=== PATIENT | female | born 1935 | race Caucasian/White ===

== ENCOUNTER → 2018-03-16 14:37 | Outpatient (CLI) | payer MEDICARE, SELFPAY | PROVIDERS: Family Provider Family Medicine; PCP Family Medicine; Visit Provider Family Medicine | DX: M81.0 Age-related osteoporosis without current pathological fracture (principal); Z78.0 Asymptomatic menopausal state; Z82.62 Family history of osteoporosis | CPT/HCPCS: 77080 ==

== ENCOUNTER 2019-12-18 15:17 | Emergency (ER) | payer MEDICARE, SELFPAY ==
[2019-12-18 15:42] VITALS: BP 198/91; PULSE 95; RESP 16; TEMP 36.7; O2SAT 96; BMI 22.3
--- NOTE | 2019-12-18 15:42 | ED_ITS ---
HPI - Head Injury General Chief complaint: Trauma Stated complaint: Fall/Hit head/Rt arm pain Time Seen by Provider: 12/18/19 15:34 Source: patient and family (son) Limitations: no limitations History of Present Illness HPI Narrative: This is a 84-year-old female who states that she tripped and fell hitting her head as well as falling on her right elbow. Patient states that she did not hit her head very hard. She did have loss of consciousness. She denies any headache, no vision changes, no chest pain or shortness of breath. She denies any neck or back pain. Her main complaint is her right elbow and she states she has a cut on her hand as well as 1 on her forehead. Patient states her tetanus is up-to-date. She denies any other GI or urinary symptoms. Patient is not on any anticoagulants including aspirin she does take allegra rvastatin and has a history of multiple orthopedic surgeries including bilateral hip replacements. She is accompanied by her son. She lives independently and does not use any aids such as walkers or canes to walk normally. Related Data Home Medications Medication Instructions Recorded Confirmed [CALCIUM] 500 mg PO BID #0 12/03/11 [IRON] 324 mg PO QDAY #0 12/03/11 [MAGNESIUM] 500 mg PO QDAY #0 12/03/11 [MULTI VIT ] 1 tab PO Q DAY #0 12/03/11 [VIT D 3 ] 2,000 iu PO QDAY #0 12/03/11 atorvastatin [Lipitor] 10 mg PO HS #0 12/03/11 fluticasone propionate 2 spray INTRANASAL QDAY #0 12/03/11 Previous Rx's Medication Instructions Recorded oxycodone 5 mg PO Q6H PRN #14 cap 12/18/19 Allergies Allergy/AdvReac Type Severity Reaction Status Date / Time hydrocodone [HYDROCODONE] Allergy Mild MAKES ME Unverified 06/03/17 13:00 FEEL CRUMMY Review of Systems Review of Systems ROS Unobtainable: All systems reviewed & are unremarkable except as noted in HPI and below Patient History Medical History (Updated 12/18/19 @ 16:59 by Ella Christopher DO) Dyslipidemia (Acute) Surgical History (Updated 12/18/19 @ 16:55 by Ella Christopher DO) S/P hip replacement (Acute) Social History Smoking Status: Never smoker Exam Narrative Exam Narrative: GEN: Patient appears in mild distress. HEAD: No evidence of trauma except for bandage at the right brow, no raccoon/Daugherty sign. NECK: Nontender, painless range of motion, trachea midline Negative for Nexus criteria, there is no midline tenderness, distracting injury, altered mental status, neuro deficit, recent EtOH. EYES: PERRLA, EOMI ENT: External inspection normal except for a linear laceration at the right eyebrow on the lateral aspect into the subcutaneous tissue, patient has small amount of ecchymosis at the brow as well,, trachea is midline, TM's are normal no hemotypanum, Nares are clear, no septal hematoma, no dental or oral injury, airway is normal and with normal occlusion, No bony tenderness RESP: Chest is nontender and has symmetric movement, no ecchymosis, breath sounds are normal no crackles, wheezes or rales CVS: Heart sounds are normal, no murmur noted, No JVD. 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 hips are nontender, no pedal edema, normal color and temperature, normal range of motion of ex tremities with normal tendon exam, 2+ pulses in all four extremities Initial Vital Signs Initial Vital Signs: Vital Signs Temperature 98.1 F 12/18/19 15:42 Pulse Rate 95 H 12/18/19 15:42 Respiratory Rate 16 12/18/19 15:42 Blood Pressure 198/91 H 12/18/19 15:42 Pulse Oximetry 96 12/18/19 15:42 Procedures Laceration Repair Laceration 1: Site: face (right eyebrow) Size (cm): 2.4 Description: linear Depth: simple, single layer Local Anesthetic: lidocaine 1% Amount of anesthesia used (mL): 2.5 Pre-repair: wound explored, irrigated extensively and deep structures intact Skin layer closed with: vicryl Size (cm): 5-0 Number of sutures: 3 Technique: simple, interrupted Scores GCS [place] coma scale eye opening: Spontaneous [place] coma scale verbal response: Orientated [place] coma scale motor response: Obey commands [place] coma scale total score: 15 Course Orders Ordered: ED Orders 12/18/19 15:41 CT head/brain wo con Stat XR elbow RT 2V Stat Discontinued Medications Acetaminophen (Tylenol) 650 mg PO NOW ONE Stop: 12/18/19 16:14 Last Admin: 12/18/19 16:17 Dose: 650 mg Documented by: LEATHA Lidocaine/Sodium Bicarbonate (Buffered Lidocaine 10 Ml Syr) 10 ml INJ NOW ONE Stop: 12/18/19 17:10 Last Admin: 12/18/19 17:13 Dose: 10 ml Documented by: LEATHA Consultations Consultation #1: Spoke with Dr. Chisholm, plan for splint/sling and follow up with clinic in the next week. Time: 17:31 Vital Signs Vital signs: Vital Signs - 8 hr 12/18/19 15:42 12/18/19 17:55 Temperature 98.1 F Pulse Rate 95 H 67 Respiratory Rate 16 16 Blood Pressure 198/91 H 157/74 H Pulse Oximetry 96 96 MDM - Head Injury Imaging Data CT scan - head: Radiologist's Impression: [address] [address] [address] Scan Report Signed Patient: Simi Caass EMR#: [id number] : 1936Acct:[id number] Age/Sex: 84 / FDate of Service: 12/18/19 Loc: ED Accession Number: [id number] Procedure: CT head/brain wo con Ordering Provider: Ella Christopher D.O. PROCEDURE: CT HEAD/BRAIN WO CON INDICATIONS: fall, hit head TECHNIQUE: Noncontrast 4.5 mm thick angled axial sections acquired from the foramen magnum to the vertex, with coronal and sagittal reformats. For radiation dose reduction, the following was used: automated exposure control, adjustment of mA and/or kV according to patient size. COMPARISON: None. FINDINGS: Image quality: Excellent. CSF spaces: Basal cisterns are patent. No extra-axial fluid collections. The ventricles are symmetric in size and shape. Brain: No intracranial bleeds or masses. There is cerebral volume loss for age, with resultant ventricular and sulcal prominence. There are periventricular and deep white matter chronic small vessel ischemic changes. There is intracranial internal carotid artery atherosclerosis. Skull and face: Calvarium and visualized facial bones appear intact, without suspicious lesions. Sinuses: Visualized sinuses and mastoids are clear. IMPRESSION: No acute intracranial findings. Dictated by: Kusum Jeffrey M.D. on 12/18/2019 at 16:03 Approved by: Kusum Jeffrey M.D. on 12/18/2019 at 16:06 Right elbow xray: Radiologist's Impression: [address] [address] XRay Report Signed Patient: Simi Casas EMR#: [id number] : 8Acct:[id number] Age/Sex: 84 / FDate of Service: 12/18/19 Loc: ED Accession Number: [id number] Procedure: XR elbow RT 2V Ordering Provider: Ella Christopher D.O. PROCEDURE: XR ELBOW RT 2V INDICATIONS: right elbow pain TECHNIQUE: 2 views of the elbow were acquired. COMPARISON: None. FINDINGS: Bones: There is a minimally displaced proximal radial fracture. No intra- articular extension. Soft tissues: There is elevation of the anterior and posterior fat pad consistent with large elbow joint effusion. IMPRESSION: Proximal radial fracture and large joint effusion. Dictated by: Kusum Jeffrey M.D. on 12/18/2019 at 16:09 Approved by: Kusum Jeffrey M.D. on 12/18/2019 at 16:10 [facility] Narrative Medical decision making narrative: Patient had Head CT ordered secondary to head injury and extremity of age, patient is not currently on anticoagulants. She does have a radial head fracture noted on x-ray and was placed in a long-arm splint by nursing and neurovascularly intact afterwards. Patient was given Tylenol for pain, she defers any narcotics. She has tolerated oxycodone code own in the past with her hip replacements but does not like the way it makes her feel so was given a prescription in case she needs it. Referral for Orthopedic surgery and repair of her laceration on her right brow. Discharge Plan Departure Patient Disposition: Home Clinical Impression: Skin tear of right hand without complication Qualifiers: Encounter type: initial encounter Qualified Code(s): S61.411A - Laceration without foreign body of right hand, initial encounter Fracture of proximal end of radius Qualifiers: Encounter type: initial encounter Fracture type: closed Laterality: right Discharge Date/Time: 12/18/19 18:10 Instructions: DI for Forearm Fracture, DI for Closed Head Injury Activity Restrictions/Additional Instructions: Follow up with Dr. Chisholm in the next 5-7 days for recheck, call tomorrow morning for an appointment. You may take Tylenol to 3000 mg in a 24 hour or up to a 1000 mg every 8 hours. Take pain medication as prescribed, this medication can make you sleepy do not drive, perform hazardous activities or make any major decisions while taking it. Splint Care: Keep splint clean and dry. Elevated affected body part to decrease swelling. OK to use ice pack on the affected body part. Use for 15-20 minutes each time, for 5-6x per day. If you develop worsening pain, numbness, tingling, discoloration of the affected body part, loosen the splint by loosening the NGHIA wrap, and either see your doctor for an urgent re-assessment, or return to the Emergency Department. Return to the Emergency Department for any new or worsening symptoms, severe headaches, confusion, vision changes, persistent vomiting, new neck or back pain, new numbness, weakness or difficulty with movement or other new or concerning symptoms. Prescriptions: New oxycodone 5 mg capsule 5 mg PO Q6H PRN (Reason: pain) Qty: 14 RF: 0 No Action atorvastatin [Lipitor] 10 MG tablet 10 mg PO HS Qty: 0 RF: 0 fluticasone propionate 16 GM spray,suspension 2 spray Intranasal QDAY Qty: 0 RF: 0 [CALCIUM] 500 mg PO BID Qty: 0 RF: 0 [MULTI VIT ] 1 tab PO Q DAY Qty: 0 RF: 0 [VIT D 3 ] 2,000 iu PO QDAY Qty: 0 RF: 0 [IRON] 324 mg PO QDAY Qty: 0 RF: 0 [MAGNESIUM] 500 mg PO QDAY Qty: 0 RF: 0 Referrals: Manfred Chisholm MD [Physician] - Olman Bundy MD [Primary Care Provider] -
--- NOTE | 2019-12-18 16:04 | PC.NURSE ---
Trauma flow sheet documentation by Ella RN reviewed, this nurse agrees with Ella clinical application manager.
[2019-12-18] MEDS: ACETAMINOPHEN 325 MG TABLET 650 MG PO (16:17)
[2019-12-18] MEDS: LIDO 1%/SOD BICARB 8.4% (10ML) 10 ML SYRINGE INJ (17:13)
[2019-12-18 17:55] VITALS: BP 157/74; PULSE 67; RESP 16; O2SAT 96
== END 2019-12-18 18:10 | disposition home or self-care (01) ==
PROVIDERS: Emergency Provider Emergency Medicine; Family Provider Family Medicine; PCP Family Medicine; Referring Provider Family Medicine
DX: S61.411A Laceration without foreign body of right hand, initial encounter (principal); S01.111A Laceration without foreign body of right eyelid and periocular area, initial encounter; S52.109A Unspecified fracture of upper end of unspecified radius, initial encounter for closed fracture; W19.XXXA Unspecified fall, initial encounter
CPT/HCPCS: 12011; 29105; 70450; 73070; 99284; 99285

== ENCOUNTER → 2020-05-07 09:08 | Outpatient (CLI) | payer MEDICARE, SELFPAY ==
[2020-05-07] MEDS: COVID-19 VACC, Ad26(JANSSEN)/PF 0.5 ML IM (09:16)
== END ==
PROVIDERS: Visit Provider Internal Medicine
DX: Z23 Encounter for immunization (principal)
CPT/HCPCS: 0031A; 91303

== ENCOUNTER → 2020-09-03 08:23 | Outpatient (CLI) | payer MEDICARE, SELFPAY ==
[2020-09-03 10:24] LABS: COVID19 -Nasal RAPID Negative (Negative)
== END ==
PROVIDERS: Visit Provider Physician Assistant
DX: Z01.812 Encounter for preprocedural laboratory examination (principal); Z20.822 Contact with and (suspected) exposure to COVID-19
CPT/HCPCS: 87635; C9803

== ENCOUNTER 2020-09-05 09:29 | Day surgery (SDC) | payer MEDICARE, SELFPAY ==
--- NOTE | 2020-09-04 19:53 | P.OP_ITS ---
Operative Date/Time/Diagnoses Date of procedure: 09/05/20 Time of procedure: 10:45 Procedure & Clinicians Procedure: Preoperative diagnoses: 1. 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 Astigmatism which is to be corrected with a toric intraocular lens implant. 3. Arthritis Postoperative diagnoses: 1. Complex cataract removal with phacoemulsification with toric posterior chamber intraocular lens implant placed. Procedure: Phacoemulsification with posterior chamber toric intraocular lens implant. Surgeon: Lety Ruffin MD Complications: None Specimen: None Implant: [id number] [place] 180 Blood loss: None Anesthesia: Retrobulbar with monitored standby Description of procedure: Patient presents with a complaint of decreased vision due to cataract which is affecting activities of daily living distance and near. The patient wants surgery to improve vision and astigmatism. She has an unusual anterior cortical and diffuse cataract but denies trauma. To improve visibility she will need capsular dye. She understands the extra risk of surgery during the COVID-19 epidemic and wishes to proceed. She was tested COVID 19 virus negative within 72 hours of the procedure. The patient was taken to the operating room and proparacaine drops placed. Indelible ink devine were placed at the 90 and 180 degree meridian. The patient was placed on the operating room table and given IV sedation. A retrobulbar block insert consisting of 6 cc of 2% xylocaine without epinephrine mixed half and half with 0.5% Marcaine with 1 cc of hyaluronidase added is placed between the medial and lateral 1/3 of the inferior orbital rim. The eye is manually massaged for 30 sec, prepped using Betadine solution, and draped in the usual sterile fashion. Temporal approach was made, a 1 mm side-port incision was made 90? from the prop osed corneal wound. Phenylephrine 1.5% mixed with 1% xylocaine 0.2 cc was placed into the anterior chamber. An air bubble was placed followed by Visudyne capsular dye. Viscoat followed by Healon was then placed. A 2.6 mm clear incision with a 2.6 mm blade was placed at the 170 degree meridian. The air bubble was then removed with BSS A 360 degree capsulorrhexis style capsulotomy was then performed with a cystitome needle on a Healon greatly aided by the capsular dye. Hydrodelineation and hydrodissection were performed. The phacoemulsification unit is introduced, and sculpting used to groove the central lens. It is then removed in chopping mode. Epi nucleus is removed with epinuclear mode and irrigation aspiration was used to remove the peripheral cortex. The posterior capsule is polished. The intraocular lens is selected, inspected, power confirmed, and placed in the posterior chamber at the desired meridian of 180?. The pupil was not constricted. The wound was stromally hydr ated and tested for leaks, there was none and it was left sutureless. Vigamox 0.1 cc was placed into the anterior chamber. Kenalog 0.2 cc was placed in the superior subconjunctival space. A drop of antibiotic and was placed and the eye was patched and shielded. The patient was stable and returned to the recovery room in excellent condition. Dictated by: Lety Ruffin MD Copy to: [facility] Same procedure as scheduled: Yes
--- NOTE | 2020-09-04 19:53 | PM.PREOP ---
Pre-operative Note COVID-19 COVID-19 status: Negative Interval Note History & Physical reviewed/Exam performed by Physician: Yes Changes to H&P: No
[2020-09-05] MEDS: PROPARACAINE 0.5% OPHTH SOL 2 DROPS EYE-OP (09:45)
[2020-09-05] MEDS: CATARACT EYE COMPOUND (10 DROPS/SYRINGE) 3 DROPS EYE-OP (09:50)
[2020-09-05 10:00] VITALS: BP 144/87; PULSE 80; RESP 16; TEMP 37.2; O2SAT 99; BMI 22.3
[2020-09-05] MEDS: ERYTHROMYCIN OPHTH 1 GM OINT 1 APPLIC EYE-RIGHT (12:59)
[2020-09-05] MEDS: MOXIFLOXACIN INJ 4 MG/0.8 ML VIAL 0.5 MG EYE-OP (12:59)
[2020-09-05] MEDS: CHONDROIDTIN/SOD HYALURONATE 1.05 ML SYRINGE INTRAOCULA (12:59)
[2020-09-05] MEDS: HYALURONATE SODIUM 10 MG/ML SYRINGE INJ (12:59)
[2020-09-05] MEDS: PHENYLEPHRINE/LIDOCAINE VIAL (OR) 0.2 ML EYE-OP (13:00)
[2020-09-05] MEDS: BALANCED SALT IRRIG SOLN NO.2 500 ML, EPINEPHrine 1 MG IRR (13:01)
[2020-09-05] MEDS: TRIAMCINOLONE 50 MG/5 ML VIAL INJ (13:01)
[2020-09-05] MEDS: TRYPAN BLUE 0.5 ML SYRINGE INJ (13:01)
[2020-09-05] MEDS: LIDOCAINE 2% 4 ML, BUPIVACAINE 0.5% (PF) 4 ML, HYALURONIDASE 150 UNIT INJ (13:02)
[2020-09-05 13:30] VITALS: BP 144/81; PULSE 78; RESP 16; TEMP 36.7; O2SAT 100
[2020-09-05 13:45] VITALS: BP 142/82; PULSE 78; RESP 16; TEMP 36.7; O2SAT 100
--- NOTE | 2020-09-05 13:55 | SUR.PHASEII ---
Pt up and ambulating gait steady, all dc instructions given and pt verbalizes understanding, iv dcd earlier and site clear. Pt dressed now and ready to go home, dcd in stable condition via wc with all belongings
== END 2020-09-05 13:56 | disposition home or self-care (01) ==
LOC: OR 09:30
PROVIDERS: PCP Family Medicine; Referring Provider Ophthalmology; Visit Provider Ophthalmology
PROC: (CPT 66984; principal; 2020-09-05 10:45)
DX: H25.811 Combined forms of age-related cataract, right eye (principal); H52.201 Unspecified astigmatism, right eye; E78.5 Hyperlipidemia, unspecified
CPT/HCPCS: 66984; J0171; J2704; J3010; J3301; J3470; V2787

== ENCOUNTER → 2020-09-17 08:23 | Outpatient (CLI) | payer MEDICARE, SELFPAY ==
[2020-09-17 12:09] LABS: COVID19 -Nasal RAPID Negative (Negative)
== END ==
PROVIDERS: PCP Family Medicine; Visit Provider Physician Assistant
DX: Z01.812 Encounter for preprocedural laboratory examination (principal); Z20.822 Contact with and (suspected) exposure to COVID-19
CPT/HCPCS: 87635; C9803

== ENCOUNTER 2020-09-19 10:24 | Day surgery (SDC) | payer MEDICARE, SELFPAY ==
--- NOTE | 2020-09-18 19:09 | PM.PREOP ---
Pre-operative Note COVID-19 COVID-19 status: Negative Interval Note History & Physical reviewed/Exam performed by Physician: Yes Changes to H&P: No
--- NOTE | 2020-09-18 19:10 | PM.OP.1 ---
Operative Date/Time/Diagnoses Date of procedure: 09/19/20 Time of procedure: 12:45 Procedure & Clinicians Procedure: Preoperative diagnoses: 1. Left advanced cortical and Nuclear sclerotic cataract 2. Astigmatism which is to be corrected with a toric intraocular lens implant. 3. Arthritis Postoperative diagnoses: 1. Complex Cataract removal with phacoemulsification with toric posterior chamber intraocular lens implant placed. Capsular dye placed. Procedure: Phacoemulsification with posterior chamber toric intraocular lens implant. Surgeon: Lety Ruffin MD Complications: None Specimen: None Implant: [id number] [place] 180 Blood loss: None Anesthesia: Retrobulbar with monitored standby Description of procedure: Patient presents with a complaint of decreased vision due to cataract which is affecting activities of daily living at distance and near. The patient wants surgery to improve vision and astigmatism. She understands the extra risk of surgery during the COVID-19 epidemic and wishes to proceed. She has tested active COVID-19 virus negative within 72 hours of the procedure. The patient was taken to the operating room and proparacaine drops placed. Indelible ink devine were placed at the 90 and 180 degree meridian. The patient was placed on the operating room table and given IV sedation. A retrobulbar block insert consisting of 6 cc of 2% xylocaine without epinephrine mixed half and half with 0.5% Marcaine with 1 cc of hyaluronidase added is placed between the medial and lateral 1/3 of the inferior orbital rim. The eye is manually massaged for 30 sec, prepped using Betadine solution, and draped in the usual sterile fashion. Temporal approach was made, a 1 mm side-port incision was made 90? from the proposed corneal wound. Phenylephrine 1.5% mixed with 1% xylocaine 0.2 cc was placed into the anterior chamber. An air bubble was placed followed by Visudyne capsular dye. The excess air was removed with BSS. Viscoat followed by Healon was then placed. A 2.6 mm clear incision with a 2.6 mm blade was placed at the 170 degree meridian. A 360 degree capsulorrhexis style capsulotomy was then performed with a cystitome needle on a Healon greatly aided by the capsular dye. Hydrodelineation and hydrodissection were performed. The phacoemulsification unit is introduced, and sculpting used to groove the central lens. It is then removed in chopping mode. Epi nucleus is removed with epinuclear mode and irrigation aspiration was used to remove the peripheral cortex. The posterior capsule is polished. The intraocular lens is selected, inspected, power confirmed, and placed in the posterior chamber at the desired meridian of 180?. The pupil was not constricted. The wound was stromally hydrated and tested for leaks, there was none and it was left sutureless. Vigamox 0.1 cc was placed into the anterior chamber. Kenalog 0.2 cc was placed in the superior subconjunctival space. A drop of antibiotic and was placed and the eye was patched and shielded. The patient was stable and returned to the recovery room in excellent condition. Dictated by: Lety Ruffin MD Copy to: [facility] Same procedure as scheduled: Yes
[2020-09-19] MEDS: PROPARACAINE 0.5% OPHTH SOL 2 DROPS EYE-OP ×2 (10:46→12:37)
[2020-09-19] MEDS: CATARACT EYE COMPOUND (10 DROPS/SYRINGE) 3 DROPS EYE-OP (10:49)
[2020-09-19 10:50] VITALS: BP 156/94; PULSE 93; RESP 16; TEMP 36.8; O2SAT 98
[2020-09-19 10:51] VITALS: BMI 22.3
--- NOTE | 2020-09-19 12:57 | SUR.OPER ---
Supine on eye stretcher, head on extension cradle secured with tape. Arms tucked at sides with blanket. Pillow under knees.
[2020-09-19] MEDS: TRYPAN BLUE 0.5 ML SYRINGE INJ (12:59)
[2020-09-19] MEDS: HYALURONATE SODIUM 10 MG/ML SYRINGE INJ (13:00)
[2020-09-19] MEDS: TRIAMCINOLONE 50 MG/5 ML VIAL INJ (13:00)
[2020-09-19] MEDS: CHONDROIDTIN/SOD HYALURONATE 1.05 ML SYRINGE INTRAOCULA (13:00)
[2020-09-19] MEDS: BALANCED SALT IRRIG SOLN NO.2 500 ML, EPINEPHrine 1 MG IRR (13:01)
[2020-09-19] MEDS: ERYTHROMYCIN OPHTH 1 GM OINT 1 APPLIC EYE-LEFT (13:01)
[2020-09-19] MEDS: PHENYLEPHRINE/LIDOCAINE VIAL (OR) 0.2 ML EYE-OP (13:01)
[2020-09-19] MEDS: MOXIFLOXACIN INJ 4 MG/0.8 ML VIAL 0.5 MG EYE-OP (13:01)
[2020-09-19] MEDS: LIDOCAINE 2% 4 ML, BUPIVACAINE 0.5% (PF) 4 ML, HYALURONIDASE 150 UNIT INJ (13:02)
[2020-09-19] MEDS: BUPIVACAINE 0.25% (PF) VIAL 4 ML INJ (13:06)
== END 2020-09-19 13:41 | disposition home or self-care (01) ==
LOC: OR 10:25
PROVIDERS: PCP Family Medicine; Referring Provider Ophthalmology; Visit Provider Ophthalmology
PROC: (CPT 66984; principal; 2020-09-19 11:45)
DX: H25.812 Combined forms of age-related cataract, left eye (principal); H52.202 Unspecified astigmatism, left eye
CPT/HCPCS: 66984; J0171; J2704; J3301; J3470; V2787

== ENCOUNTER 2022-10-31 12:10 | Observation (INO) | payer MEDICARE, SELFPAY ==
[2022-10-31] VITALS (16 sets, daily range): BP systolic 143–202; BP diastolic 75–98; PULSE 78–106; RESP 10–25; TEMP 36.6–36.9; O2SAT 94–98; BMI 22.1
--- NOTE | 2022-10-31 12:13 | DI.RAD.S_ITS ---
PROCEDURE: XR CHEST 1V INDICATIONS: chest pain TECHNIQUE: One view of the chest was acquired. COMPARISON: [facility], , CHEST 1 VIEW, 07/29/2015, 11:33. FINDINGS: Surgical changes and devices: None. Lungs and pleura: Lungs are clear. No pleural effusions or pneumothorax. Mediastinum: Mediastinal contours appear normal. Heart size is enlarged. Bones and chest wall: No suspicious bony lesions. Overlying soft tissues appear unremarkable. Scoliotic curvature is present. IMPRESSION: Portable chest within normal limits for age. Dictated by: Nimisha Bourne M.D. on 10/31/2022 at 12:53 Approved by: Nimisha Bourne M.D. on 10/31/2022 at 12:53
[2022-10-31 12:54] LABS: INR 0.9 (0.9-1.3); Prothrombin Time 10.6 SECONDS (10.1-12.7)
[2022-10-31 12:56] LABS: Add Manual Diff / Slide Review NO; Basophils Absolute Auto 0 /uL (0-100); Basophils Percent Auto 0.5 % (0-2); Eosinophils Absolute Auto 100 /uL (0-450); Hematocrit 40.7 % (36-46); Hemoglobin 13.7 g/dL (12.0-16.0); Lymphocytes Absolute Auto 2000 /uL (1100-4500); Lymphocytes Percent Auto 19.7 % (25-40); Mean Corpuscular HGB Conc 33.5 % (30-36); Mean Corpuscular Hemoglobin 31.3 PG (26-34); Mean Corpuscular Volume 93.4 fL (80-100); Monocytes Absolute Auto 700 /uL (0-900); Monocytes Percent Auto 7.1 % (3-14); Neutrophils Absolute Auto 7300 /uL (1500-7000); Neutrophils Percent Auto 71.7 % (50-75); PTT Partial Thromboplastin Tim 32 SECONDS (26-36); Platelet Count 258 X10^3/uL (150-400); Red Blood Cell Count 4.36 X10^6/uL (4.0-5.2); Red Cell Distribution Width 13.1 % (11.6-14.8); White Blood Cell Count 10.2 X10^3/uL (4.5-11.0)
[2022-10-31 12:58] LABS: Alanine Aminotransferase 24 IU/L (<35); Albumin 4.8 g/dL (3.5-5.0); Albumin Globulin Ratio 1.4 (1.0-2.8); Alkaline Phosphatase 70 U/L (38-126); Aspartate Aminotransferase 35 IU/L (14-36); BUN Creatinine Ratio 18.8 (6-22); Bilirubin Total 0.4 mg/dL (0.2-1.3); Blood Urea Nitrogen 13 mg/dL (7-17); Calcium 10.3 mg/dL (8.4-10.2); Carbon Dioxide 27 mmol/L (22-32); Chloride 101 mmol/L (98-107); Creatine Kinase 142 U/L (30-135); Estimated Glomerular Filt Rate > 60 mL/min (>60); Globulin 3.5 g/dL (1.7-4.1); Glucose 98 mg/dL (80-110); HEMOLYSIS < 15 (0-50); Lipase 105 U/L (23-300); Magnesium 2.2 mg/dL (1.6-2.3); Potassium 4.2 mmol/L (3.4-5.1); Sodium 139 mmol/L (137-145); Total Protein 8.3 g/dL (6.3-8.2)
[2022-10-31 13:10] LABS: Troponin I < 0.012 ng/mL (0.01-0.034)
--- NOTE | 2022-10-31 13:13 | ED.CHESTPAIN ---
HPI - Chest Pain General Chief Complaint: Chest Pain Stated Complaint: chest pain began this morning Time Seen by Provider: 10/31/22 13:06 Source: patient Mode of arrival: Ambulatory Limitations: no limitations History of Present Illness HPI narrative: Patient here for nonreproducible left-sided lateral chest achy pain 09/01. Nothing makes it better or worse. No nausea no shortness of breath no syncope no diaphoresis. Patient denies any recent illness. She states she awoke with discomfort 8:00 a.m. today. No rash. No history of blood clots in legs or lungs. Patient does not smoke. No primary or personal family history of coronary disease. Related Data Home Medications Medication Instructions Recorded Confirmed [CALCIUM] 500 mg PO BID ##0 12/03/11 10/31/22 [IRON] 324 mg PO QDAY ##0 12/03/11 10/31/22 [MAGNESIUM] 500 mg PO QDAY ##0 12/03/11 10/31/22 [MULTI VIT ] 1 tab PO Q DAY ##0 12/03/11 10/31/22 [VIT D 3 ] 2,000 iu PO QDAY ##0 12/03/11 10/31/22 atorvastatin 10 mg tablet (Lipitor) 10 mg PO HS ##0 12/03/11 10/31/22 fluticasone propionate 50 2 spray intranasal QDAY ##0 12/03/11 10/31/22 mcg/actuation nasal spray,suspension propranolol 10 mg tablet 10 mg PO BEDTIME 09/05/20 10/31/22 losartan 100 mg tablet 100 mg PO BEDTIME 10/31/22 10/31/22 Allergies Allergy/AdvReac Type Severity Reaction Status Date / Time hydrocodone [HYDROCODONE] AdvReac Mild MAKES ME Verified 09/19/20 10:32 FEEL CRUMMY Review of Systems Review of Systems Narrative: GENERAL: negative chills, fatigue, malaise, fever, sweats. HEENT: negative sinus pain, ear pain, sore throat RESPIRATORY: negative dyspnea, cough CARDIOVASCULAR: Positive chest pain, negative palpitations GASTROINTESTINAL: negative nausea, vomiting, abdominal pain : negative dysuria, frequency, hematuria MUSCULOSKELETAL: negative muscle or bony pain SKIN: negative rash, skin lesions NEUROLOGIC: negative weakness, numbness ROS Unobtainable: All systems reviewed & are unremarkable except as noted in HPI and below Patient History Medical History Dyslipidemia Surgical History S/P hip replacement Social History household members: none Smoking Status: Never smoker alcohol intake: former Smoking Status: Never smoker alcohol intake frequency: 0-2 drinks per day Substance Use Type: does not use Exam Narrative Exam Narrative: GENERAL: in no distress, not toxic not dyspneic HEAD: Normocephalic. EYES: Pupils equal round ENT: Mucous membranes moist. NECK: Trachea midline. CARDIOVASCULAR: Regular rate and rhythm nontender left chest and ribs. RESPIRATORY: Clear to auscultation. Breath sounds equal bilaterally. No wheezes, rales, or rhonchi. GASTROINTESTINAL: Abdomen soft, non-tender EXTREMITIES: No gross deformities. BACK: No flank tenderness. No rash NEURO: AOx4. SKIN: Warm and dry PSYCH: Not anxious, is cooperative Initial Vital Signs Initial Vital Signs: Vital Signs Temperature 97.8 F 10/31/22 12:20 Pulse Rate 88 10/31/22 12:20 Respiratory Rate 18 10/31/22 12:20 Blood Pressure 202/98 H 10/31/22 12:20 Pulse Oximetry 98 10/31/22 12:20 Oxygen Delivery Method Room Air 10/31/22 12:20 Course Orders Ordered: Discontinued Medications Acetaminophen (Acetaminophen 325 Mg Tablet) 650 mg PO Q6H PRN PRN Reason: Fever/Mild Pain (1-3) Aspirin (Aspirin 81 Mg Chew Tab) 324 mg PO NOW ONE Stop: 10/31/22 12:14 Last Admin: 10/31/22 12:50 Dose: Not Given Documented By: SHAHRZAD Atorvastatin Calcium (Atorvastatin 20 Mg Tablet) 10 mg PO BEDTIME [facility] Last Admin: 10/31/22 21:10 Dose: 10 mg Documented By: ABIDA Calcium Carbonate (Calcium Carbonate 500 Mg Tab) 500 mg PO BID [facility] Last Admin: 11/01/22 08:18 Dose: 500 mg Documented By: Admin: 10/31/22 21:11 Dose: 500 mg Documented By: ABIDA Enoxaparin Sodium (Enoxaparin 40 Mg/0.4 Ml Syringe) 40 mg SUBCUT DAILY [facility] Last Admin: 11/01/22 08:08 Dose: 40 mg Documented By: GERALD Ferrous Sulfate (Ferrous Sulfate 325 Mg Tablet) 325 mg PO DAILY [facility] Last Admin: 11/01/22 08:09 Dose: Not Given Documented By: GERALD Fluticasone Propionate (Fluticasone 120 Gore/16 Gm Gore.Susp) 2 spray NASAL DAILY [facility] Last Admin: 11/01/22 08:10 Dose: Not Given Documented By: GERALD Losartan Potassium (Losartan 50 Mg Tablet) 100 mg PO BEDTIME [facility] Last Admin: 10/31/22 21:11 Dose: 100 mg Documented By: ABIDA Magnesium Oxide (Magnesium Oxide 400 Mg Tablet) 400 mg PO DAILY [facility] Last Admin: 11/01/22 08:09 Dose: 400 mg Documented By: GERALD Multivitamins (Multivitamin 1 Tablet) 1 tab PO DAILY [facility] Last Admin: 11/01/22 12:53 Dose: Not Given Documented By: GERALD Naloxone HCl (Naloxone 0.4 Mg/Ml Vial) 0.2 mg IV Q2MIN PRN PRN Reason: Opiate Reversal Nitroglycerin (Nitroglycerin Oint 1 Inch/Gm Oint...G.) 0.5 inch TOP NOW ONE Stop: 10/31/22 13:13 Last Admin: 10/31/22 13:38 Dose: 0.5 inch Documented By: HIMANSHU Ondansetron HCl (Ondansetron 4 Mg/2 Ml Inj) 4 mg IV Q8HR PRN PRN Reason: Nausea And Vomiting Propranolol HCl (Propranolol 10 Mg Tablet) 10 mg PO BEDTIME [facility] Last Admin: 10/31/22 21:18 Dose: Not Given Documented By: ABIDA Vitamin D (Cholecalciferol (Vitamin D3) 1,000 Unit Tablet) 2,000 unit PO DAILY [facility] Last Admin: 11/01/22 08:09 Dose: Not Given Documented By: GERALD Vital Signs Vital signs: Vital Signs - 8 hr 10/31/22 12:20 10/31/22 12:21 10/31/22 12:30 Temperature 97.8 F Pulse Rate 88 82 Respiratory Rate 18 18 Blood Pressure 202/98 H 185/93 H Pulse Oximetry 98 97 Oxygen Delivery Method Room Air 10/31/22 12:30 10/31/22 13:00 10/31/22 13:00 Temperature Pulse Rate 81 81 Respiratory Rate 10 L 12 Blood Pressure 157/88 H Pulse Oximetry 98 95 Oxygen Delivery Method 10/31/22 13:38 10/31/22 13:30 10/31/22 13:30 Temperature Pulse Rate 85 81 Respiratory Rate 17 Blood Pressure 149/75 H 149/75 H Pulse Oximetry 96 Oxygen Delivery Method 10/31/22 14:00 10/31/22 14:00 10/31/22 14:30 Temperature Pulse Rate 83 Respiratory Rate 13 Blood Pressure 153/82 H 169/87 H Pulse Oximetry 96 Oxygen Delivery Method 10/31/22 14:30 10/31/22 15:00 10/31/22 15:01 Temperature Pulse Rate 88 84 90 Respiratory Rate 22 15 Blood Pressure Pulse Oximetry 94 97 97 Oxygen Delivery Method 10/31/22 15:01 10/31/22 15:30 10/31/22 15:30 Temperature Pulse Rate 85 Respiratory Rate 21 Blood Pressure 181/92 H 161/90 H Pulse Oximetry 96 Oxygen Delivery Method MDM - Chest Pain Lab Data 11/01/22 04:39 11/01/22 04:39 Labs: Lab Results 10/31/22 10/31/22 10/31/22 Range/Units 12:37 12:37 12:37 WBC 10.2 (4.5-11.0) X10^3/uL RBC 4.36 (4.0-5.2) X10^6/uL Hgb 13.7 (12.0-16.0) g/dL Hct 40.7 (36-46) % MCV 93.4 (80-100) fL MCH 31.3 (26-34) PG MCHC 33.5 (30-36) % RDW 13.1 (11.6-14.8) % Plt Count 258 (150-400) X10^3/uL Neut % (Auto) 71.7 (50-75) % Lymph % (Auto) 19.7 L (25-40) % [place] % (Auto) 7.1 (3-14) % Eos % (Auto) 1.0 L (2-4) % Baso % (Auto) 0.5 (0-2) % Neut # (Auto) 7300 H (0692-9113) /uL Lymph # (Auto) 2000 (6798-7786) /uL [place] # (Auto) 700 (0-900) /uL Eos # (Auto) 100 (0-450) /uL Baso # (Auto) 0 (0-100) /uL PT 10.6 (10.1-12.7) SECONDS INR 0.9 (0.9-1.3) APTT 32 (26-36) SECONDS Sodium 139 (137-145) mmol/L Potassium 4.2 (3.4-5.1) mmol/L Chloride 101 (98-107) mmol/L Carbon Dioxide 27 (22-32) mmol/L BUN 13 (7-17) mg/dL Creatinine 0.69 (0.52-1.04) mg/dL Estimated GFR > 60 (>60) mL/min BUN/Creatinine Ratio 18.8 (6-22) Glucose 98 (80-110) mg/dL Calcium 10.3 H (8.4-10.2) mg/dL Magnesium 2.2 (1.6-2.3) mg/dL Total Bilirubin 0.4 (0.2-1.3) mg/dL AST 35 (14-36) IU/L ALT 24 (<35) IU/L Alkaline Phosphatase 70 (38-126) U/L Total Creatine Kinase 142 H (30-135) U/L Troponin I < 0.012 (0.01-0.034) ng/mL Total Protein 8.3 H (6.3-8.2) g/dL Albumin 4.8 (3.5-5.0) g/dL Globulin 3.5 (1.7-4.1) g/dL Albumin/Globulin Ratio 1.4 (1.0-2.8) Lipase 105 (23-300) U/L 10/31/22 Range/Units 14:30 WBC (4.5-11.0) X10^3/uL RBC (4.0-5.2) X10^6/uL Hgb (12.0-16.0) g/dL Hct (36-46) % MCV (80-100) fL MCH (26-34) PG MCHC (30-36) % RDW (11.6-14.8) % Plt Count (150-400) X10^3/uL Neut % (Auto) (50-75) % Lymph % (Auto) (25-40) % [place] % (Auto) (3-14) % Eos % (Auto) (2-4) % Baso % (Auto) (0-2) % Neut # (Auto) (5967-8233) /uL Lymph # (Auto) (2216-3553) /uL [place] # (Auto) (0-900) /uL Eos # (Auto) (0-450) /uL Baso # (Auto) (0-100) /uL PT (10.1-12.7) SECONDS INR (0.9-1.3) APTT (26-36) SECONDS Sodium (137-145) mmol/L Potassium (3.4-5.1) mmol/L Chloride (98-107) mmol/L Carbon Dioxide (22-32) mmol/L BUN (7-17) mg/dL Creatinine (0.52-1.04) mg/dL Estimated GFR (>60) mL/min BUN/Creatinine Ratio (6-22) Glucose (80-110) mg/dL Calcium (8.4-10.2) mg/dL Magnesium (1.6-2.3) mg/dL Total Bilirubin (0.2-1.3) mg/dL AST (14-36) IU/L ALT (<35) IU/L Alkaline Phosphatase (38-126) U/L Total Creatine Kinase (30-135) U/L Troponin I < 0.012 (0.01-0.034) ng/mL Total Protein (6.3-8.2) g/dL Albumin (3.5-5.0) g/dL Globulin (1.7-4.1) g/dL Albumin/Globulin Ratio (1.0-2.8) Lipase (23-300) U/L Imaging Data Chest x-ray: Radiologist's Impression: [address] [address] XRay Report Signed Patient: Simi Casas MR#: [id number] : 1935 Acct:[id number] Age/Sex: 87 / F Date of Service: 10/31/22 Loc: ED Accession Number: [id number] ?? Procedure: XR chest 1V Ordering Provider: Carlin Pratt MD PROCEDURE:? XR CHEST 1V ? INDICATIONS:? chest pain ? TECHNIQUE:? One view of the chest was acquired.? ? COMPARISON:? [facility], CR, CHEST 1 VIEW, 07/29/2015, 11:33. ? FINDINGS:? ? Surgical changes and devices:? None.? ? Lungs and pleura:? Lungs are clear.? No pleural effusions or pneumothorax.? ? Mediastinum:? Mediastinal contours appear normal.? Heart size is enlarged. ? Bones and chest wall:? No suspicious bony lesions.? Overlying soft tissues appear unremarkable.? Scoliotic curvature is present. ? ? IMPRESSION:? Portable chest within normal limits for age. ? ? Dictated by: Nimisha Bourne M.D. on 10/31/2022 at 12:53 ? ? Approved by: Nimisha Bourne M.D. on 10/31/2022 at 12:53 ? MDM Narrative Medical decision making narrative: Patient here for nonreproducible left-sided lateral chest achy pain 09/01. Nothing makes it better or worse. No nausea no shortness of breath no syncope no diaphoresis. Patient denies any recent illness. She states she awoke with discomfort 8:00 a.m. today. No rash. No history of blood clots in legs or lungs. Patient does not smoke. No primary or personal family history of coronary disease. After history and exam CBC CMP troponin EKG chest x-ray aspirin nitro paste MDM CC: Left chest pain Complicating co-morbidities: Age hypercholesteremia Data collected from: Patient Medical records reviewed: No recent visit for this complaint Differential considered: Includes but not limited to angina STEMI non-STEMI unstable angina shingles costochondritis pleurisy pneumonia Exam documented above, pertinent findings include: Nontender chest Lab Test results independently reviewed as above. Pertinent findings: WBC 10.2 INR 0.9 sodium 139 potassium 4.2 troponin less than 0.012 x 2 Independently reviewed EKG normal sinus rhythm rate [address] elevation or depression Repeat EKG normal sinus rhythm rate [address] elevation depression Imaging studies independently reviewed: Chest x-ray no acute finding Consultations: 4:[address] Gambino, on-call for primary care provider. She will see patient for admission Treatments: Aspirin nitro paste Re-evaluations: 4:00 p.m.. Chest pain significantly improved after nitro paste. Aspirin provided. Patient agrees for admission. Reviewed results with patient. Discussion: Appropriate for admission for observation and echocardiogram. Patient has never had cardiac workup before. Currently chest pain controlled during course of stay. Blood pressure has improved significantly 202/98 is now 161/90 Diagnosis: Chest pain Discharge Plan Departure Patient Disposition: Admitted as Observation Clinical Impression: Chest pain Admit Date/Time: 10/31/22 16:16 Admit Provider: Radha Gambino
[2022-10-31] MEDS: NITROGLYCERIN OINT 1 INCH/GM OINT...G. 0.5 INCH TOP (13:38)
[2022-10-31 15:03] LABS: Troponin I < 0.012 ng/mL (0.01-0.034)
--- NOTE | 2022-10-31 18:04 | PC.NURSE ---
Addendum entered by Elizabeth Sharif R.N. 11/01/22 16:01: Pt ECHO complete. D/C orders received. HL & Tele discontinued Home instructions given w/understanding Pt escorted by staff via W/C to waiting vehicle in stable condition. Original Note: Pt admitted for chest discomfort, Denies disomfort at this time Tele placed, NSR/.first degree AV block Pt oriented to room & call system ' Dr. Gambino here to see pt. Call light w/in reach, pt calls appropriately for needs Continue w/plan of care
--- NOTE | 2022-10-31 18:11 | P.HP_ITS ---
History of Present Illness History of Present Illness Date Patient Seen: 10/31/22 Time Patient Seen: 18:11 Date of Onset of Symptoms: 10/31/22 Chief complaint: chest pain began this morning Narrative: This is a very pleasant 87-year-old female who is under the primary care of Dr. Baldwin. Patient has a history of hypertension and hyperlipidemia. She is been in her usual state of health except she did roast a 6 lb chicken yesterday and also went to the grocery store this morning. She then developed left side pain over her rib and she was seen in the clinic and due to concern for elevated blood pressure and chest pain she was referred to the ER. ER evaluation showed 2 CKs that were negative and troponin x2 that were negative and EKGs that were normal. Patient was given aspirin and she was given a nitro paste and she felt like her pain was better but did not think it was really associated to the nitro paste. She does feel better. She does have a history of a left-sided neck pain and trapezius problem that she is had for a while. She is significant thoracic scoliosis and kyphosis. She did not have any associated symptoms of numbness or tingling down her arm. She did not have any worsening symptoms with deep inspiration. She did not have any palpitations. Did not have any lightheadedness or dizziness. Did not have any nausea vomiting or diaphoresis. At this time she is not having really any symptoms of unless if she pushes on it. She states that the pain started when she put her bra on this morning. Past medical history: Hypertension, patient has white coat hypertension but blood pressures at home are 130s over 70s Hyperlipidemia Past surgical history Bilateral tubal ligation Bilateral hip replacements Left arm fracture open reduction internal fixation Health related behavior Never been a smoker No alcohol Active Social history: Patient lives alone in [place] [facility]. She has 3 children and 12 grandchildren and 10 great-grandchildren many of her family members live in [place]. Two of her granddaughters are present. Family history: Mother of some type of pleural lung cancer Dad of pancreatic cancer No family history of strokes or coronary artery disease Review of systems is negative other than above. No GI symptoms. No other recent changes in activity other than above. Twelve point review of systems otherwise negative [facility] Medical History Dyslipidemia Surgical History S/P hip replacement Social History household members: none Smoking Status: Never smoker alcohol intake: former Meds Home Medications and Allergies Home Medications Medication Instructions Recorded Confirmed Type [CALCIUM] 500 mg PO BID ##0 12/03/11 10/31/22 History [IRON] 324 mg PO QDAY ##0 12/03/11 10/31/22 History [MAGNESIUM] 500 mg PO QDAY ##0 12/03/11 10/31/22 History [MULTI VIT ] 1 tab PO Q DAY ##0 12/03/11 10/31/22 History [VIT D 3 ] 2,000 iu PO QDAY ##0 12/03/11 10/31/22 History atorvastatin 10 mg tablet (Lipitor) 10 mg PO HS ##0 12/03/11 10/31/22 History fluticasone propionate 50 2 spray intranasal QDAY ##0 12/03/11 10/31/22 History mcg/actuation nasal spray,suspension propranolol 10 mg tablet 10 mg PO BEDTIME 09/05/20 10/31/22 History losartan 100 mg tablet 100 mg PO BEDTIME 10/31/22 10/31/22 History Allergies Allergy/AdvReac Type Severity Reaction Status Date / Time hydrocodone [HYDROCODONE] AdvReac Mild MAKES ME Verified 09/19/20 10:32 FEEL CRUMMY Exam Vital Signs (past 8 hours): - 10/31/22 12:20 10/31/22 12:21 10/31/22 12:30 Temperature 97.8 F Pulse Rate 88 82 Respiratory Rate 18 18 Blood Pressure 202/98 H 185/93 H Pulse Oximetry 98 97 Oxygen Delivery Method Room Air Oxygen Flow Rate 10/31/22 12:30 10/31/22 13:00 10/31/22 13:00 Temperature Pulse Rate 81 81 Respiratory Rate 10 L 12 Blood Pressure 157/88 H Pulse Oximetry 98 95 Oxygen Delivery Method Oxygen Flow Rate 10/31/22 13:38 10/31/22 13:30 10/31/22 13:30 Temperature Pulse Rate 85 81 Respiratory Rate 17 Blood Pressure 149/75 H 149/75 H Pulse Oximetry 96 Oxygen Delivery Method Oxygen Flow Rate 10/31/22 14:00 10/31/22 14:00 10/31/22 14:30 Temperature Pulse Rate 83 Respiratory Rate 13 Blood Pressure 153/82 H 169/87 H Pulse Oximetry 96 Oxygen Delivery Method Oxygen Flow Rate 10/31/22 14:30 10/31/22 15:00 10/31/22 15:01 Temperature Pulse Rate 88 84 90 Respiratory Rate 22 15 Blood Pressure Pulse Oximetry 94 97 97 Oxygen Delivery Method Oxygen Flow Rate 10/31/22 15:01 10/31/22 15:30 10/31/22 15:30 Temperature Pulse Rate 85 Respiratory Rate 21 Blood Pressure 181/92 H 161/90 H Pulse Oximetry 96 Oxygen Delivery Method Oxygen Flow Rate 10/31/22 16:00 10/31/22 16:00 10/31/22 16:30 Temperature Pulse Rate 86 Respiratory Rate 17 Blood Pressure 166/89 H 176/97 H Pulse Oximetry 95 Oxygen Delivery Method Oxygen Flow Rate 10/31/22 16:30 10/31/22 17:00 Temperature 98.4 F Pulse Rate 106 H 97 H Respiratory Rate 25 H 16 Blood Pressure 171/84 H Pulse Oximetry 94 98 Oxygen Delivery Method Oxygen Flow Rate 0 Oxygen Delivery Method Room Air Oxygen Flow Rate 0 Narrative Exam Narrative: Afebrile vital signs are stable Patient appears younger than stated age and is in no apparent distress HEENT is unremarkable Neck: Supple without adenopathy or thyromegaly patient does have tenderness to palpation of her lateral trapezius muscle and left rhomboid. Cor: Regular rate and rhythm without murmur, distant 1 S1-S2 Abdomen: Positive bowel sounds, soft, nontender, nondistended, no hepatosplenomegaly Extremities no edema pulses intact Neurologic exam nonfocal. Patient was significant thoracic kyphosis and scoliosis. Patient with tend erness with palpation to the ribcage both anterior lateral and posterior and mid rib area. No evidence of skin rashes ecchymosis or evidence of trauma. No crepitus without auscultation. Unclear if this reproduces her pain. Objective Labs 10/31/22 12:37 10/31/22 12:37 Labs: Laboratory Results - last 24 hr 10/31/22 10/31/22 10/31/22 12:37 12:37 12:37 WBC 10.2 RBC 4.36 Hgb 13.7 Hct 40.7 MCV 93.4 MCH 31.3 MCHC 33.5 RDW 13.1 Plt Count 258 Neut % (Auto) 71.7 Lymph % (Auto) 19.7 L [place] % (Auto) 7.1 Eos % (Auto) 1.0 L Baso % (Auto) 0.5 Neut # (Auto) 7300 H Lymph # (Auto) 2000 [place] # (Auto) 700 Eos # (Auto) 100 Baso # (Auto) 0 PT 10.6 INR 0.9 APTT 32 Sodium 139 Potassium 4.2 Chloride 101 Carbon Dioxide 27 BUN 13 Creatinine 0.69 Estimated GFR > 60 BUN/Creatinine Ratio 18.8 Glucose 98 Calcium 10.3 H Magnesium 2.2 Total Bilirubin 0.4 AST 35 ALT 24 Alkaline Phosphatase 70 Total Creatine Kinase 142 H Troponin I < 0.012 Total Protein 8.3 H Albumin 4.8 Globulin 3.5 Albumin/Globulin Ratio 1.4 Lipase 105 10/31/22 14:30 WBC RBC Hgb Hct MCV MCH MCHC RDW Plt Count Neut % (Auto) Lymph % (Auto) [place] % (Auto) Eos % (Auto) Baso % (Auto) Neut # (Auto) Lymph # (Auto) [place] # (Auto) Eos # (Auto) Baso # (Auto) PT INR APTT Sodium Potassium Chloride Carbon Dioxide BUN Creatinine Estimated GFR BUN/Creatinine Ratio Glucose Calcium Magnesium Total Bilirubin AST ALT Alkaline Phosphatase Total Creatine Kinase Troponin I < 0.012 Total Protein Albumin Globulin Albumin/Globulin Ratio Lipase Assessment & Plan Assessment & Plan narrative: 87-year-old female with hypertension hyperlipidemia with atypical chest pain admitted for rule out acute AL. Plan: Will repeat enzymes in the morning. Will do an echo. Will give supplemental oxygen as needed. Will give blood pressure medicines to bring blood pressure down. We will continue with the nitro paste for now. If patient develops headache we will take this off and continue to monitor. Assessment 2. Hypertension with elevated blood pressure now Plan: Will go ahead and start losartan 100 mg daily Assessment 3. Hyperlipidemia Plan: Continue atorvastatin Assessment 4. Osteoarthritis without acute concerns. Plan: Will follow Assessment 5. DVT prophylaxis Plan Lovenox 75 minutes spent with discussing with physicians, nursing, meeting with patient and her granddaughters and reviewing the chart, formulating a plan and documenta tion Code status is DNR Quality VTE Deep Vein Thrombosis/Pulmonary Embolism Present on Admission: No
[2022-10-31] MEDS: ATORVASTATIN 20 MG TABLET 10 MG PO (21:10)
[2022-10-31] MEDS: CALCIUM CARBONATE 500 MG TAB PO (21:11)
[2022-10-31] MEDS: LOSARTAN 50 MG TABLET 100 MG PO (21:11)
[2022-11-01 00:22] VITALS: BP 148/79; PULSE 71; RESP 19; TEMP 36.2; O2SAT 97
[2022-11-01 04:00] VITALS: BP 121/87; PULSE 105; RESP 17; TEMP 36.7; O2SAT 95
[2022-11-01 05:22] LABS: Add Manual Diff / Slide Review NO; Basophils Absolute Auto 0 /uL (0-100); Basophils Percent Auto 0.5 % (0-2); Eosinophils Absolute Auto 200 /uL (0-450); Eosinophils Percent Auto 1.8 % (2-4); Hematocrit 37.9 % (36-46); Hemoglobin 12.8 g/dL (12.0-16.0); Lymphocytes Absolute Auto 2000 /uL (1100-4500); Lymphocytes Percent Auto 21.6 % (25-40); Mean Corpuscular HGB Conc 33.8 % (30-36); Mean Corpuscular Hemoglobin 31.1 PG (26-34); Monocytes Absolute Auto 900 /uL (0-900); Monocytes Percent Auto 9.5 % (3-14); Neutrophils Absolute Auto 6100 /uL (1500-7000); Neutrophils Percent Auto 66.6 % (50-75); Platelet Count 239 X10^3/uL (150-400); Red Blood Cell Count 4.12 X10^6/uL (4.0-5.2); White Blood Cell Count 9.1 X10^3/uL (4.5-11.0)
[2022-11-01 05:27] LABS: BUN Creatinine Ratio 17.1 (6-22); Blood Urea Nitrogen 12 mg/dL (7-17); Calcium 9.4 mg/dL (8.4-10.2); Carbon Dioxide 27 mmol/L (22-32); Chloride 103 mmol/L (98-107); Creatine Kinase 238 U/L (30-135); Estimated Glomerular Filt Rate > 60 mL/min (>60); Glucose 90 mg/dL (80-110); HEMOLYSIS < 15 (0-50); Potassium 3.9 mmol/L (3.4-5.1); Sodium 140 mmol/L (137-145)
[2022-11-01 05:39] LABS: Troponin I < 0.012 ng/mL (0.01-0.034)
--- NOTE | 2022-11-01 06:15 | PM.DS.1 ---
History of Present Illness History of Present Illness Date Patient Seen: 11/01/22 Chief complaint: chest pain began this morning Narrative: This is a very pleasant 87-year-old female who is under the primary care of Dr. Baldwin.? Patient has a history of hypertension and hyperlipidemia.? She is been in her usual state of health except she did roast a 6 lb chicken yesterday and also went to the grocery store this morning.? She then developed left side pain over her rib and she was seen in the clinic and due to concern for elevated blood pressure and chest pain she was referred to the ER.? ER evaluation showed 2 CKs that were negative and troponin x2 that were negative and EKGs that were normal.? Patient was given aspirin and she was given a nitro paste and she felt like her pain was better but did not think it was really associated to the nitro paste.? She does feel better.? She does have a history of a left-sided neck pain and trapezius problem that she is had for a while.? She is significant thoracic scoliosis and kyphosis.? She did not have any associated symptoms of numbness or tingling down her arm.? She did not have any worsening symptoms with deep inspiration.? She did not have any palpitations.? Did not have any lightheadedness or dizziness.? Did not have any nausea vomiting or diaphoresis.? At this time she is not having really any symptoms of unless if she pushes on it.? She states that the pain started when she put her bra on this morning. Discharge Providers Provider Date of admission: 10/31/22 16:16 Discharge Date: 11/01/22 Primary care physician: Carlos Locke MD Discharge provider: Arline Hussein MD Summary Hospital Course Discharge Diagnosis: Atypical chest pain Hypertension Hyperlipidemia Osteoarthritis Hospital Course: The pt presented with atypical chest pain, noted to have severely elevated BPs. Her pain responded to nitroglycerin paste, and BP improved as well. She had a negative cardiac work-up in the ED including troponins x2 and EKG. A third troponin after admission was also negative. The pt was continued on her home 100mg PO Labetalol at admission. Her BPs at the time of discharge were stable. She had no recurrence of the chest pain. Echocardiogram was reassuring. The pt will f/u with their primary PCP for consideration of stress testing as an outpatient, however presentation most consistent with musculoskeltal etiology. Status at Discharge Cognitive/behavioral status at discharge: oriented Overall status at discharge: patient is back to baseline Exam Vital Signs (past 8 hours): - 11/01/22 00:22 11/01/22 04:00 Temperature 97.1 F L 98.0 F Pulse Rate 71 105 H Respiratory Rate 19 17 Blood Pressure 148/79 H 121/87 Pulse Oximetry 97 95 Oxygen Delivery Method Room Air Oxygen Flow Rate 0 Narrative Exam Narrative: Gen: NAD, sitting comfortably in bed, appears well CV: RRR, no murmurs Resp: clear to auscultation bilaterally Abd: soft, nontender, nondistended Ext: no edema Objective Labs 11/01/22 04:39 11/01/22 04:39 Labs: Laboratory Results - last 24 hr 10/31/22 10/31/22 10/31/22 12:37 12:37 12:37 WBC 10.2 RBC 4.36 Hgb 13.7 Hct 40.7 MCV 93.4 MCH 31.3 MCHC 33.5 RDW 13.1 Plt Count 258 Neut % (Auto) 71.7 Lymph % (Auto) 19.7 L [place] % (Auto) 7.1 Eos % (Auto) 1.0 L Baso % (Auto) 0.5 Neut # (Auto) 7300 H Lymph # (Auto) 2000 [place] # (Auto) 700 Eos # (Auto) 100 Baso # (Auto) 0 PT 10.6 INR 0.9 APTT 32 Sodium 139 Potassium 4.2 Chloride 101 Carbon Dioxide 27 BUN 13 Creatinine 0.69 Estimated GFR > 60 BUN/Creatinine Ratio 18.8 Glucose 98 Calcium 10.3 H Magnesium 2.2 Total Bilirubin 0.4 AST 35 ALT 24 Alkaline Phosphatase 70 Total Creatine Kinase 142 H Troponin I < 0.012 Total Protein 8.3 H Albumin 4.8 Globulin 3.5 Albumin/Globulin Ratio 1.4 Lipase 105 10/31/22 11/01/22 11/01/22 14:30 04:39 04:39 WBC 9.1 RBC 4.12 Hgb 12.8 Hct 37.9 MCV 92.0 MCH 31.1 MCHC 33.8 RDW 13.0 Plt Count 239 Neut % (Auto) 66.6 Lymph % (Auto) 21.6 L [place] % (Auto) 9.5 Eos % (Auto) 1.8 L Baso % (Auto) 0.5 Neut # (Auto) 6100 Lymph # (Auto) 2000 [place] # (Auto) 900 Eos # (Auto) 200 Baso # (Auto) 0 PT INR APTT Sodium 140 Potassium 3.9 Chloride 103 Carbon Dioxide 27 BUN 12 Creatinine 0.70 Estimated GFR > 60 BUN/Creatinine Ratio 17.1 Glucose 90 Calcium 9.4 Magnesium Total Bilirubin AST ALT Alkaline Phosphatase Total Creatine Kinase 238 H Troponin I < 0.012 < 0.012 Total Protein Albumin Globulin Albumin/Globulin Ratio Lipase PFSH Medical History Dyslipidemia Surgical History S/P hip replacement Social History household members: none Smoking Status: Never smoker alcohol intake: former Discharge Plan Discharge Plan Patient Disposition: Home Discharge orders & Medications Prescriptions: Continued atorvastatin [Lipitor] 10 MG tablet 10 mg PO HS Qty: 0 fluticasone propionate 16 GM spray,suspension 2 spray Intranasal QDAY Qty: 0 [CALCIUM] 500 mg PO BID Qty: 0 [MULTI VIT ] 1 tab PO Q DAY Qty: 0 [VIT D 3 ] 2,000 iu PO QDAY Qty: 0 [IRON] 324 mg PO QDAY Qty: 0 [MAGNESIUM] 500 mg PO QDAY Qty: 0 propranolol 10 mg Tablet 10 mg PO BEDTIME losartan 100 mg tablet 100 mg PO BEDTIME Follow up/Referrals: Carlos Locke MD [Primary Care Provider] - 1 Week Diet/Activity/Treatments Diet: Diet as Tolerated and Regular Visit Report/Discharge Packet Stand Alone Forms: Patient Portal/API, Stroke Signs & Symptoms Discharge Data Primary Care Provider: Carlos Locke Attending Provider: Radha Gambino Admit Date/Time: 10/31/22 16:16 Discharges patient from system. Discharge Date/Time: 11/01/22 15:32 Quality VTE Deep Vein Thrombosis/Pulmonary Embolism Present on Admission: No
[2022-11-01] MEDS: ENOXAPARIN 40 MG/0.4 ML SYRINGE SUBCUT (08:08)
[2022-11-01] MEDS: MAGNESIUM OXIDE 400 MG TABLET PO (08:09)
[2022-11-01] MEDS: CALCIUM CARBONATE 500 MG TAB PO (08:18)
[2022-11-01 08:46] VITALS: BP 130/80; PULSE 101; RESP 18; TEMP 36.6; O2SAT 97
[2022-11-01 13:00] VITALS: BP 135/73; PULSE 90; RESP 17; TEMP 36.6; O2SAT 96
--- NOTE | 2022-11-01 13:40 | CM.DANOTE ---
Patient is an 87 yo female who was admitted on 10/31/22 for Chest Pain r/o. Pt has [facility] and [facility] for insurance and her PCP is Dr. Carlos Locke. EMR was reviewed. Per MD, pt with hx of hypertension and admitted for Chest pain r/o and no stress test available on the w/e and to have Echo and labs and then stable for d/c home today. Echo to likely happen around 1100. SW met bedside with pt and explained role and she confirms she lives in [place] alone but is active and independent at baseline and does not typically use any DME for ambulation. Pt still drives, but only in [place] and not at night. Pt does her own cooking and cleaning and shopping but has 3 supportive adult children and lots of local family. Pt confirms her DPOA is 1) Josiane 2) Hua and her third is another family member. Pt denies any recent hx of HH or SNF and last admission was about 7-8 yrs ago when she had hip replacement and states currently her right hip has been bothering her more and she has an outpt appointment with Ortho in a couple weeks to address this. Pt is hopeful for home today via family POV and does not anticipate any needs and has been independent in her room and voided. Plan: SW to follow for plan of discharge home today via family POV and outpt f/u and any further identified discharge planning needs. XENIA Richardson Discharge Planning/Care Management CM Discharge Assessment Start: 11/01/22 13:38 Freq: Status: Active Protocol: Document 11/01/22 13:38 BF (Rec: 11/01/22 13:40 BF [id number]) Discharge Planning Assessment Assigned Plant Technical Specialist XENIA Klein DPOA/Assigned Designee Name Josiane Contact Information [phone] Advance Directives? Yes Advance Directives on File Yes History Provided By Patient,Medical Record Has Patient been admitted in last 30 No days? Prior Living Arrangements House Household Members none Type of transporation used prior to Drives own vehicle admit Independent with ADL's Yes Is patient alert and oriented? Yes Caregiver for Another No DME Already Rented / Owned FWW / Walker Barriers to Discharge No Discharge Plan Home Transportation Arrangement Family plans to transport at d /c Referrals Initiated None needed Whiteboard Updated in Patient Room with Yes name and ext. # of Plant Technical Specialist Review Status In Process Please Provide Date Initial DC 11/01/22 Assessment Was Performed Next Review Type Continued Stay Review
--- NOTE | 2022-11-01 18:08 | DI.ECHO.S_ITS ---
[facility] +---------+ [facility] +---------+ : : [address] [place] [address] : : : : [id number] : : : : Phone: [phone]+ Echocardiogram Report + + :Name: MATT SANCHEZ Study Date: 11/01/2022 Height: 63 in : :[facility] ReadingLocation: [facility] Weight: 125 lb : : Gender: Female BSA: 1.6 m2 : :: 1935 Age: 87 yrs BP: 115/70 mmHg: :Reason For Study: Chest pain HR: 84 : : Performed By: Kyaw Rm : :Referring: SUMAYA PULIDO : + + Interpretation Summary The left ventricle is normal in size and wall thickness. The left ventricular ejection fraction is normal. The ejection fraction is estimated to be 60-65%. Left ventricular wall motion is normal. Diastolic parameters suggest a relaxation abnormality of the left ventricle, consistent with probable normal filling pressures. The right ventricle is normal in size and function. The right ventricular systolic pressure is estimated to be at least 35 mmHg based on an estimated right atrial pressure of 3 mm Hg. Both atria are normal in size. The atrial septum is aneurysmal. There is no Doppler evidence for an interatrial shunt. There is no significant valvular heart disease. The aortic root is normal size. Procedure: A two-dimensional transthoracic echocardiogram with color flow and Doppler was performed. The study quality was technically adequate. There is no prior echocardiogram noted for this patient. The patient was in normal sinus rhythm during the exam. Left Ventricle: The left ventricle is normal in size and wall thickness. There is no ventricular septal defect visualized. The left ventricular ejection fraction is normal. The ejection fraction is estimated to be 60-65%. Left ventricular wall motion is normal. Diastolic parameters suggest a relaxation abnormality of the left ventricle, consistent with probable normal filling pressures. Right Ventricle: The right ventricle is normal in size and function. Atria: Both atria are normal in size. The atrial septum is aneurysmal. There is no Doppler evidence for an interatrial shunt. Mitral Valve: The mitral valve leaflets appear normal. There is no evidence of stenosis, fluttering, or prolapse. There is no mitral regurgitation noted. Aortic Valve: The aortic valve is trileaflet. The aortic valve opens well. There is no aortic valve stenosis. There is trace aortic regurgitation. Tricuspid Valve: The tricuspid valve is normal. There is trace tricuspid regurgitation. The right ventricular systolic pressure is estimated to be at least 35 mmHg based on an estimated right atrial pressure of 3 mm Hg. Pulmonic Valve: The pulmonic valve is normal in structure and function. There is no significant valvular heart disease. Great Vessels: The aortic root is normal size. The ascending aorta could not be visualized. The pulmonary artery is normal size. The IVC is of normal diameter and collapses greater than 50% with a sniff. This suggests a low right atrial pressure of 3 mm Hg. Pericardium/ Pleura There is no pericardial effusion. There is no pleural effusion. MMode/2D Measurements & Calculations LVIDd: 4.0 cm LVOT diam: 2.0 cm LVIDs: 2.7 cm Ao root diam: 3.1 cm FS: 31.5 % IVSd: 0.85 cm LVPWd: 0.92 cm LV sherman. diameter/BSA (cm/m^2): 2.5 LV sys. diameter/BSA (cm/m^2): 1.7 LA A2 area: 14.1 cm2 RA long axis: 5.1 cm LA A4 area: 14.9 cm2 RA area: 14.2 cm2 LA length (vol): 4.8 cm RA vol: 33.7 ml LA vol: 36.8 ml RA : 21.3 ml/m2 LA vol index: 23.3 ml/m2 IVC diam: 1.3 cm TAPSE: 2.3 cm Doppler Measurements & Calculations Ao V2 max: 117.0 cm/sec LVOT Max James: 95.4 cm/sec Ao V2 mean: 88.6 cm/sec LV V1 max P.6 mmHg Ao max P.5 mmHg LV V1 VTI: 19.1 cm Ao mean P.3 mmHg ZOË(I,D): 2.6 cm2 Ao V2 VTI: 23.0 cm ZOË(V,D): 2.6 cm2 sev ratio: 0.83 ZOË indexed to BSA (cm^2/m^2): 1.6 AI P1/2t: 275.4 msec AI dec slope: 423.5 cm/sec2 MV E max james: 65.4 cm/sec TR max james: 280.7 cm/sec MV A max james: 111.5 cm/sec TR max P.5 mmHg MV E/A: 0.59 Med Peak E' James: 7.7 cm/sec E/E' med: 8.5 Lat Peak E' James: 7.8 cm/sec E/E' lat: 8.4 E/e' average: 8.4 MV dec time: 0.21 sec SV(LVOT): 60.0 ml Reading Physician:04:14 PM
== END 2022-11-01 15:32 | disposition home or self-care (01) ==
LOC: ED 15:41 → AC 16:17
PROVIDERS: Admitting Provider Family Medicine; Emergency Provider Emergency Medicine; PCP Family Medicine; Referring Provider Emergency Medicine; Visit Provider Family Medicine
DX: R07.89 Other chest pain (principal); E78.5 Hyperlipidemia, unspecified; I10 Essential (primary) hypertension; M19.90 Unspecified osteoarthritis, unspecified site
CPT/HCPCS: 36415; 71045; 80048; 80053; 82550; 83690; 83735; 84484; 85025; 85610; 85730; 93005; 93010; 93306; 96372; 99238; 99284; G0378; J1650

== ENCOUNTER → 2023-12-02 10:59 | Outpatient (CLI) | payer MEDICARE, SELFPAY ==
[2022-10-31 16:48] VITALS: BMI 22.1
--- NOTE | 2023-12-02 | DI.RAD.S_ITS ---
PROCEDURE: XR LUMBAR SPINE 2-3V INDICATIONS: lumbar radiculopathy TECHNIQUE: 3 views of the lumbar spine were acquired. COMPARISON: None. FINDINGS: Bones: 5 [id number] vertebrae are present. 8 mm anterolisthesis of L4 on L5. Multilevel degenerative changes including disc height loss, endplate sclerosis and osteophytosis. No vertebral body compression fractures. No suspicious bony lesions. Bilateral hip arthroplasty with prosthetic elements in appropriate position. Soft tissues: Overlying bowel gas pattern is normal. No suspicious soft tissue calcifications. IMPRESSION: No acute bony abnormality. Multilevel degenerative changes, severe at L4-L5 and L5-S1. L4-L5 8 mm anterolisthesis. If symptoms persist with conservative management, consider cross-sectional imaging such as CT or MRI. Approved by: Janelle Crain M.D.,Ph.D. on 12/03/2023 at 0:09
== END ==
PROVIDERS: PCP Family Medicine; Referring Provider Family Medicine; Visit Provider Family Medicine
DX: M47.26 Other spondylosis with radiculopathy, lumbar region (principal); M47.27 Other spondylosis with radiculopathy, lumbosacral region; M43.16 Spondylolisthesis, lumbar region
CPT/HCPCS: 72100

== ENCOUNTER 2024-02-25 11:40 | Emergency (ER) | payer MEDICARE, SELFPAY ==
[2022-10-31 16:48] VITALS: BMI 22.1
[2024-02-25 11:52] VITALS: BP 147/95; PULSE 85; RESP 17; TEMP 37.1; O2SAT 99; BMI 24.4
--- NOTE | 2024-02-25 11:55 | DI.RAD.S_ITS ---
PROCEDURE: XR HIP W PEL IF DONE LT 2V INDICATIONS: L hip pain after injury TECHNIQUE: AP pelvis and lateral view of the hip acquired. COMPARISON: None. FINDINGS: Bones: Patient is status post bilateral hip arthroplasties, with hardware components in expected positions. The hip joint appears congruent. The visualized bony structures appear intact. Soft tissues: Overlying postoperative changes are noted. No suspicious soft tissue densities. IMPRESSION: No fracture. No acute osseous lesion. If symptoms and/or clinical suspicion for pathology persists, further assessment with repeat radiographs (7-10 days) or advanced imaging (e.g. CT, MRI or bone scan) should be considered. Dictated by: Beckie Wiseman MD, PhD on 02/25/2024 at 12:30 Approved by: Beckie Wiseman MD, PhD on 02/25/2024 at 12:30
--- NOTE | 2024-02-25 12:36 | ED.LOWEXIN ---
HPI - Extremity Injury (Lower) General Chief Complaint: Extremity Injury, Lower Stated Complaint: left hip pain; hip surgery 15 years ago Time Seen by Provider: 02/25/24 11:54 Source: patient Mode of arrival: Wheelchair History of Present Illness HPI Narrative: Patient was an 88-year-old female. Had a left total hip replacement done approximately 15 years ago. She reports she was had some muscle weakness in that left leg since that time. States this morning she was at her baseline state of health. She turned to the right. [place] a pop in her right hip and has been unable to ambulate since then. At baseline she normally does not use a cane or a walker but she does have these at home to use as needed. She was not on anticoagulation. No other injuries from the event. Related Data Home Medications Medication Instructions Recorded Confirmed atorvastatin 10 mg tablet (Lipitor) 10 mg PO HS ##0 12/03/11 02/25/24 fluticasone propionate 50 2 spray intranasal QDAY ##0 12/03/11 02/25/24 mcg/actuation nasal spray,suspension propranolol 10 mg tablet 10 mg PO BEDTIME 09/05/20 10/31/22 losartan 100 mg tablet 100 mg PO BEDTIME 10/31/22 02/25/24 Previous Rx's Medication Instructions Recorded tramadol 50 mg tablet 50 mg PO Q6H PRN pain #10 tabs 02/25/24 Allergies Allergy/AdvReac Type Severity Reaction Status Date / Time hydrocodone [HYDROCODONE] AdvReac Mild MAKES ME Verified 02/25/24 11:55 FEEL CRUMMY Review of Systems Review of Systems Narrative: See HPI Patient History Medical History Dyslipidemia Surgical History S/P hip replacement Social History household members: none Smoking Status: Never smoker alcohol intake: former Smoking Status: Never smoker alcohol intake frequency: 0-2 drinks per day Exam Initial Vital Signs Initial Vital Signs: Vital Signs Temperature 98.8 F 02/25/24 11:52 Pulse Rate 85 02/25/24 11:52 Respiratory Rate 17 02/25/24 11:52 Blood Pressure 147/95 H 02/25/24 11:52 Pulse Oximetry 99 02/25/24 11:52 Oxygen Delivery Method Room Air 02/25/24 11:52 Const General: cooperative, comfortable and No ill appearing HENMT Head: normal to inspection and normocephalic GI Inspection: non-distended Palpation: soft and No tender Skin General: no rashes or lesions noted Neuro Sensory Exam: no sensory deficits noted Extrem Other: Patient has discomfort to movement in the anterior portion of the left thigh. No tenderness to palpation. No tenderness along the lateral aspect of her hip. Her knee is unremarkable. Course Orders Ordered: ED Orders 02/25/24 11:55 XR hip w pel if done LT 2V Stat 02/25/24 12:41 CT pelvis wo con Stat Discontinued Medications Oxycodone/Acetaminophen (Oxycodone/Acetaminophen 5/325 Tablet) 1 tab PO NOW ONE Stop: 02/25/24 12:42 Vital Signs Vital signs: Vital Signs - 8 hr 02/25/24 11:52 Temperature 98.8 F Pulse Rate 85 Respiratory Rate 17 Blood Pressure 147/95 H Pulse Oximetry 99 Oxygen Delivery Method Room Air MDM - Extremity Injury (Lower) Imaging Data Extremity x-ray #1: Radiologist's Impression: PROCEDURE: XR HIP W PEL IF DONE LT 2V INDICATIONS: L hip pain after injury TECHNIQUE: AP pelvis and lateral view of the hip acquired. COMPARISON: None. FINDINGS: Bones: Patient is status post bilateral hip arthroplasties, with hardware components in expected positions. The hip joint appears congruent. The visualized bony structures appear intact. Soft tissues: Overlying postoperative changes are noted. No suspicious soft tissue densities. IMPRESSION: No fracture. No acute osseous lesion. If symptoms and/or clinical suspicion for pathology persists, further assessment with repeat radiographs (7-10 days) or advanced imaging (e.g. CT, MRI or bone scan) should be considered. ct pelvis: Radiologist's Impression: PROCEDURE: CT PEL WO CON INDICATIONS: L hip pain unable to ambulate TECHNIQUE: Noncontrast 3 mm axial sections acquired through the bony pelvis, with coronal and sagittal reformatting. COMPARISON: [facility] , XR HIP W PEL IF DONE LT 2V, 02/25/2024, 11:56. FINDINGS: Image quality: Mildly degraded by metal artifact from bilateral hip arthroplasties.. Bones: No trauma found, no evidence of device loosening or disruption. Soft tissues: No adjacent hematoma or inflammatory change, no synovial protrusion found. IMPRESSION: Bilateral hip arthroplasties, no definite acute disease superimposed. MDM Narrative Medical decision making narrative: Neurovascularly intact. X-ray and CT scan showed no acute bony pathology. Patient can ambulate as tolerated. Will treat symptomatically for now. She has a walker at home. She was given return precautions. She expressed understanding and agreement with plan. Discharge Plan Departure Patient Disposition: Home Clinical Impression: Acute hip pain Instructions: DI for Hip Pain Activity Restrictions/Additional Instructions: CT scan and x-ray shows no signs of fracture. You can walk 1 your left leg as tolerated. Use the walker that you have at home as needed. Contact your primary doctor for a follow-up. Return to the emergency department for new symptoms. Prescriptions: New tramadol 50 mg tablet 50 mg PO Q6H PRN (Reason: pain) Qty: 10 0RF No Action atorvastatin [Lipitor] 10 MG tablet 10 mg PO HS Qty: 0 fluticasone propionate 16 GM spray,suspension 2 spray Intranasal QDAY Qty: 0 propranolol 10 mg Tablet 10 mg PO BEDTIME losartan 100 mg tablet 100 mg PO BEDTIME Referrals: Carlos Locke MD [Primary Care Provider] - Stand Alone Forms: Patient Portal/API/Survey
--- NOTE | 2024-02-25 12:41 | DI.CT.S_ITS ---
PROCEDURE: CT PEL WO CON INDICATIONS: L hip pain unable to ambulate TECHNIQUE: Noncontrast 3 mm axial sections acquired through the bony pelvis, with coronal and sagittal reformatting. COMPARISON: [facility], CR, XR HIP W PEL IF DONE LT 2V, 02/25/2024, 11:56. FINDINGS: Image quality: Mildly degraded by metal artifact from bilateral hip arthroplasties.. Bones: No trauma found, no evidence of device loosening or disruption. Soft tissues: No adjacent hematoma or inflammatory change, no synovial protrusion found. IMPRESSION: Bilateral hip arthroplasties, no definite acute disease superimposed. Dictated by: Lino Bassett M.D. on 02/25/2024 at 13:03 Approved by: Lino Bassett M.D. on 02/25/2024 at 13:07
[2024-02-25] MEDS: TRAMADOL 50 MG TABLET PO (13:39)
--- NOTE | 2024-02-25 13:39 | PC.NURSE ---
Left hip pain. Pt reports hip replacement 15 years ago. No obvious deformity noted. Pt states she was able to get out of her house partially by scooting leg. Pt reports no pain when she sits still. Pt states she perfers to manage her pain with tyeonal and no narcotics.
[2024-02-25 13:46] VITALS: BP 161/84; PULSE 78; RESP 16; O2SAT 98
== END 2024-02-25 13:47 | disposition home or self-care (01) ==
PROVIDERS: Emergency Provider Emergency Medicine; PCP Family Medicine
DX: M25.552 Pain in left hip (principal); Z96.642 Presence of left artificial hip joint
CPT/HCPCS: 72192; 73502; 99283; 99284

== ENCOUNTER 2024-04-26 13:46 | Outpatient (CLI) | payer MEDICARE, SELFPAY ==
[2022-10-31 16:48] VITALS: BMI 22.1
[2024-04-26] VITALS (8 sets, daily range): BP systolic 135–178; BP diastolic 69–91; PULSE 70–85; RESP 16–19; TEMP 36.2; O2SAT 96–99
--- NOTE | 2024-04-26 13:50 | DI.RAD.S_ITS ---
PROCEDURE: PAIN L/SI FACET INJ/BLK 1STL INDICATIONS: Right L4, L5 and S1 MBB LA COMPARISON: None. FINDINGS/IMPRESSION: Fluoroscopic spot filming was performed to verify placement of spinal needles at the right L4, L5 and S1 level(s), as labeled on the films. Appropriate location(s) of the needle tip(s) was confirmed by injection of iodinated contrast. Dictated by: Beckie Wiseman MD, PhD on 04/27/2024 at 10:25 Approved by: Beckie Wiseman MD, PhD on 04/27/2024 at 10:26
[2024-04-26] MEDS: MIDAZOLAM 2 MG/2 ML VIAL 1 MG IV (14:58)
[2024-04-26] MEDS: BUPIVACAINE 0.5% (PF) 10 ML VIAL 2 ML INJ (15:02)
[2024-04-26] MEDS: iopamidoL 15 ML VIAL 3 ML INJ (15:02)
--- NOTE | 2024-04-26 15:14 | P.PCN_ITS ---
Date/Time/Diagnoses Date of procedure: 04/26/24 Time of procedure: 15:14 Pre-procedure diagnosis: 1. FACET ARTHROPATHY Post-procedure diagnosis: same Procedure Notes Procedure: 1. Right L4, L5 and S1 MB BLOCKS LA Indications: Simi is referred by Dr. Locke for treatment of Right Axial LBP. Physician: Parviz Stone Total Fluoroscopy time (seconds): 6 Total sedation minutes: 10 Complications: none Procedure in detail & Post-procedure care: DESCRIPTION OF PROCEDURE Fluoroscopically guided, contrast-controlled right L4, L5 and S1 medial branch blocks with 0.5cc of 0.5% Marcaine. Following review of allergy and review of potential side effects and complications, including, but not necessarily limited to, infection, allergic reaction, local tissue breakdown, nerve injury, paralysis, stroke and possible , the patient indicated that the patient understood and agreed to proceed. An informed consent document was signed by the patient, witnessed by a nurse, and placed in the patient's chart. After review of previous anaesthesic history and IV conscious sedation the patient was deemed safe to proceed with today?s procedure with IV conscious sedation as ASA class II designation. Safety time-out was performed to confirm patient ID, procedure to be performed and site of procedure. IV sedation was accomplished with a combination of 1mg of Versed was administered by the RN after DO order, titrated to patient comfort during the course of the procedure while the patient remained responsive to all verbal commands In the prone position, following sterile prep and drape of the lumbar region, the right L4, L5 and S1 anatomical location of the medial branch of the dorsal ramus was identified fluoroscopically. Subsequently an anesthetic skin wheal using 1% lidocaine solution was initiated at each of the anatomical spots. Subsequently then a 22-gauge 3.5-inch spinal needle was atraumatically introduced and advanced under fluoroscopic guidance at each of the corresponding sites at the right L4, L5 and S1 MB. After negative aspiration, 0.2 cc of Isovue 200 was injected, confirming placement without vascular or intrathecal uptake. Subsequently then 0.5 cc of 0.5% Marcaine solution was injected at each of the corresponding sites at the right L4, L5 and S1 medial branch locations. The patient tolerated the procedure well without signs or symptoms of complications. The procedure tolerated the procedure well without signs or symptoms of complications prior to transfer to the recovery area continued monitoring without incident. Post-procedure, the patient was monitored initiating provocative activities to measure the amount of relief from block of the facetogenic pain. The patient reported a VAS of 7 prior to the procedure and a post-procedure VAS of 1. It has been a pleasure to assist in the diagnostic and therapeutic care of your patient. POST OP INSTRUCTIONS The patient was provided with a Pain Log to complete over the next several hours and subsequent days prior to the patient's follow up with the ordering physician. If the patient has automatic quilling machine operator relief to the solution applied, then they may be a candidate for medial branch rhizotomy. The patient is aware, was provided, once again, with a Pain Log and will follow up with the referring physician for review and clinical correlation.
== END 2024-04-26 15:33 | disposition home or self-care (01) ==
PROVIDERS: PCP Family Medicine; Referring Provider Physical Medicine & Rehabilitation; Visit Provider Physical Medicine & Rehabilitation
DX: M47.816 Spondylosis without myelopathy or radiculopathy, lumbar region (principal); M47.817 Spondylosis without myelopathy or radiculopathy, lumbosacral region
CPT/HCPCS: 64493; 64494; 99152; J2250

== ENCOUNTER → 2024-09-13 15:07 | Outpatient (CLI) | payer MEDICARE, SELFPAY ==
[2022-10-31 16:48] VITALS: BMI 22.1
--- NOTE | 2024-09-13 15:08 | DI.RAD.S_ITS ---
PROCEDURE: XR DEXA AXIAL SKELETON INDICATIONS: postmenopausal COMPARISON: None. FINDINGS: Lumbar Spine: L1-L4. Bone mineral density 1.011 g/cm2, T score -0.3, Z-score 2.5. Left Forearm: Bone mineral density 0.545 g/cm2, T score -2.5. (T score greater or equal to -1.0 to: NORMAL) (T score from -1.1 to -2.4: OSTEOPENIA) (T score less than or equal to -2.5: OSTEOPOROSIS) IMPRESSION: Osteoporosis. Follow-up guidelines as follows: Osteoporosis: Consider a repeat DEXA and Vertebral Fracture Assessment (VFA) exam in 2 years or sooner if medically necessary, to reassess this patient's status. Osteopenia: Consider a repeat DEXA in 2-3 years to reassess this patient's status, or if there is a new clinical indication. Normal: Consider a repeat DEXA in 5 years or sooner, or if there is a new clinical indication. All treatment decisions require clinical judgment and consideration of individual patient factors, including patient preferences, comorbidities, previous drug use, risk factors not captured in the FRAX model (e.g., frailty, falls, vitamin D deficiency, increased bone turnover, interval significant decline in bone density ) and possible under- or over-estimation of fracture risk by FRAX. In addition, the NOF Guide recommends that FDA-approved medical therapies be considered in postmenopausal women and men age >= 50 years with a: * Hip or vertebral (clinical or morphometric) fracture * T-score of <=-2.5 at the spine or hip * Ten-year fracture probability by FRAX of >= 3% for hip fracture or >=20% for major osteoporotic fracture. Dictated by: Garrick Manuel M.D. on 09/15/2024 at 11:22 Approved by: Garrick Manuel M.D. on 09/15/2024 at 11:24
== END ==
PROVIDERS: PCP Family Medicine; Referring Provider Family Medicine; Visit Provider Family Medicine
DX: M81.0 Age-related osteoporosis without current pathological fracture (principal); Z78.0 Asymptomatic menopausal state
CPT/HCPCS: 77080